=== PATIENT | female | born 1990 | race Caucasian/White ===

== ENCOUNTER 2016-11-21 17:50 | Outpatient (CLI) | payer BC, MEDICAID ==
[2017-01-20] MEDS ORDERED: PRENATAL VIT1 TAB PO (11:07)
[2017-01-20] MEDS ORDERED: VITAMIN B650 MG PO (11:07)
[2017-01-20] MEDS ORDERED: PEPCID DPS20 MG PO (11:07)
[2017-01-20] MEDS ORDERED: UNISOM25 MG PO (11:10)
[2017-01-20] MEDS ORDERED: COLACE-DPS100 MG PO (11:10)
[2017-01-20] MEDS ORDERED: TYLENOL EXTRA500 M1 PO (11:10)
[2017-01-20] MEDS ORDERED: NIPPLECREAM TP (11:11)
[2017-01-20] MEDS ORDERED: LAN-O-SOOTHE7 GM TP (11:11)
[2017-01-20] MEDS ORDERED: TUCKS1 EACH TP (11:12)
== END 2016-11-21 19:50 | disposition home or self-care (01) ==
LOC: 2LDRP 17:50 → BC 17:50
DX: O99.89 Other specified diseases and conditions complicating pregnancy, childbirth and the puerperium (principal); R10.30 Lower abdominal pain, unspecified; M54.9 Dorsalgia, unspecified; Z3A.31 31 weeks gestation of pregnancy

== ENCOUNTER 2016-12-26 20:25 | Outpatient (CLI) | payer BC, MEDICAID ==
[2017-01-20] MEDS ORDERED: PEPCID DPS20 MG PO (11:07)
[2017-01-20] MEDS ORDERED: PRENATAL VIT1 TAB PO (11:07)
[2017-01-20] MEDS ORDERED: VITAMIN B650 MG PO (11:07)
[2017-01-20] MEDS ORDERED: UNISOM25 MG PO (11:10)
[2017-01-20] MEDS ORDERED: TYLENOL EXTRA500 M1 PO (11:10)
[2017-01-20] MEDS ORDERED: COLACE-DPS100 MG PO (11:10)
[2017-01-20] MEDS ORDERED: NIPPLECREAM TP (11:11)
[2017-01-20] MEDS ORDERED: LAN-O-SOOTHE7 GM TP (11:11)
[2017-01-20] MEDS ORDERED: TUCKS1 EACH TP (11:12)
== END 2016-12-26 23:50 | disposition home or self-care (01) ==
LOC: 2LDRP 20:25 → BC 20:25
DX: O46.93 Antepartum hemorrhage, unspecified, third trimester (principal); O47.03 False labor before 37 completed weeks of gestation, third trimester; Z3A.36 36 weeks gestation of pregnancy

== ENCOUNTER 2017-01-16 13:50 | Outpatient (CLI) | payer BC, MEDICAID ==
[~2017-01-16] VITALS: Ht 175.3 cm; Wt 94.8 kg
[2017-01-20] MEDS ORDERED: PRENATAL VIT1 TAB PO (11:07)
[2017-01-20] MEDS ORDERED: VITAMIN B650 MG PO (11:07)
[2017-01-20] MEDS ORDERED: PEPCID DPS20 MG PO (11:07)
[2017-01-20] MEDS ORDERED: TYLENOL EXTRA500 M1 PO (11:10)
[2017-01-20] MEDS ORDERED: COLACE-DPS100 MG PO (11:10)
[2017-01-20] MEDS ORDERED: UNISOM25 MG PO (11:10)
[2017-01-20] MEDS ORDERED: LAN-O-SOOTHE7 GM TP (11:11)
[2017-01-20] MEDS ORDERED: NIPPLECREAM TP (11:11)
[2017-01-20] MEDS ORDERED: TUCKS1 EACH TP (11:12)
== END 2017-01-16 16:02 | disposition home or self-care (01) ==
LOC: BC 13:50 → 2LDRP 13:50 → BC 16:02
DX: O47.1 False labor at or after 37 completed weeks of gestation (principal); Z3A.39 39 weeks gestation of pregnancy

== ENCOUNTER 2017-01-17 08:00 | Inpatient (IN) | payer BC, MEDICAID ==
[~2017-01-17] VITALS: Ht 175.3 cm; Wt 93.9 kg
--- NOTE | ~2017-01-17 | FD ---
ADMIT: 01/17/2017 RM/LOC: 221 [facility] MR#: [id number] [address] [id number] [facility] [address] [place] [address] Final Diagnosis SEX: F AGE: 26 : 1990 ADMISSION DATE: 01/17/2017 DISCHARGE DATE: 01/19/2017 FINAL DIAGNOSIS: 2, para 1, 26-year-old female with term vaginal delivery on 01/17/2017. Delivery was uncomplicated. She went home the following day. Stacy Rdz MD/ tatiana JOB #: [id number] CC: Stacy Rdz MD, Attending Physician Stacy Rdz MD, Family Physician
[2017-01-20] MEDS ORDERED: PEPCID DPS20 MG PO (11:07)
[2017-01-20] MEDS ORDERED: VITAMIN B650 MG PO (11:07)
[2017-01-20] MEDS ORDERED: PRENATAL VIT1 TAB PO (11:07)
[2017-01-20] MEDS ORDERED: UNISOM25 MG PO (11:10)
[2017-01-20] MEDS ORDERED: COLACE-DPS100 MG PO (11:10)
[2017-01-20] MEDS ORDERED: TYLENOL EXTRA500 M1 PO (11:10)
[2017-01-20] MEDS ORDERED: NIPPLECREAM TP (11:11)
[2017-01-20] MEDS ORDERED: LAN-O-SOOTHE7 GM TP (11:11)
[2017-01-20] MEDS ORDERED: TUCKS1 EACH TP (11:12)
--- NOTE | 2017-01-24 09:47 | OR ---
ADMIT: 01/17/2017 RM/LOC: 221 [facility] MR#: [id number] [facility] [address] [place] [id number] [facility] [address] [place] [address] Operative/Delivery Room Report SEX: F AGE: 26 : 1990 SURGERY DATE: 01/17/2017 SURGEON: Stacy Rdz MD PREOPERATIVE DIAGNOSES: 1. 2, para 1, 26-year-old female with estimated date of confinement of 01/20/2017 with benign course. 2. Blood type O positive. 3. Antibody negative. 4. Rubella immune. 5. Hepatitis B negative. 6. Group B Streptococcus positive. POSTOPERATIVE DIAGNOSES: 1. Viable male , delivered at 1242 hours with scores of 8 at 1 minute and 9 at 5 minutes, weight 3460 g or 7 pounds 10.5 ounces. 2. Meconium-stained fluid. ESTIMATED BLOOD LOSS: 300 mL. ANESTHESIA: Epidural. PLACENTA: Intact with three-vessel cordLoren Chaparro [facility] of 01/17/2017, complaining that she had irregular contractions through the night that were steadily getting stronger and more regular. She was actually in the hospital the evening before for approximately 2 hours with no cervical change from 3 cm and was sent home. On arrival back this morning, she was 5 cm, intact membranes, 80% effaced. Contractions were every 2-3 minutes with heart tones category I. She was admitted and started on IV penicillin-G for group B strep positive status. She progressed well and had epidural placed. Shortly before noon, she had spontaneous rupture of membranes with meconium in the fluid and on exam, she was found to be completely dilated. She had no urge to push at that time and continued to labor. I was called at 1219 hours that she was +3 station. On my arrival, she was prepped and draped and began pushing and did very well. Baby was delivered at 1242 hours. Position was CHAPIN and there was nuchal cord palpated, but body delivered through without difficulty and he did well. He was quite vigorous. I gently suctioned his mouth and nares, and placed him up on mom's abdomen. He did not require any additional ADMIT: 01/17/2017 RM/LOC: 221 [facility] MR#: [id number] [address] [id number] [facility] [address] [place] [address] Operative/Delivery Room Report SEX: F AGE: 26 : 1990 resuscitation. After delay of just over 60 seconds, the cord was clamped doubly and then cut by father of the baby. The placenta delivered intact with three-vessel cord noted. On inspection, she has shallow bilateral periurethral lacerations that were not bleeding and not repaired. I did perform episiotomy as the head was and there were no extensions, so that second-degree episiotomy was repaired in the usual fashion with good hemostasis. Uterus involuted well and there was 20 units of Pitocin infusing through the IV. When I left the room, both mom and babe were doing well. She plans to breast feed, and we will use routine cares. I do note that I removed the epidural catheter and monitored briefly for any bleeding. There was none, and nurses will contact me if there is any concern. Stacy Rdz MD/ tatiana JOB #: [id number] CC: Stacy Rdz, Attending Physician Stacy Rdz, Family Physician
== END 2017-01-19 11:48 | disposition home or self-care (01) | DRG 775 ==
LOC: BC 08:00 → 2LDRP 08:00
PROVIDERS: ADMIT Family Medicine
PROC: 10E0XZZ Delivery of Products of Conception, External Approach (ICD-10-PCS; principal; 2017-01-17)
PROC: 0W8NXZZ Division of Female Perineum, External Approach (ICD-10-PCS; principal; 2017-01-17)
DX: O99.824 Streptococcus B carrier state complicating childbirth (principal); O77.0 Labor and delivery complicated by meconium in amniotic fluid; O69.81X0 Labor and delivery complicated by cord around neck, without compression, not applicable or unspecified; Z3A.39 39 weeks gestation of pregnancy; Z37.0 Single live birth